=== PATIENT | male | born 1950 | race Caucasian/White ===

== ENCOUNTER → 2017-08-29 | Outpatient (CLI) | payer MEDICARE, OTHER ==
[~2017-08-29] MED LIST: COQ-10 PO; FISH OIL PO; FOLIC ACID1 MG PO; MULTIVITAMINS1 EAC7 PO; PROBIOTIC & AC1 EACH PO; PROSTATE SUPPLEMENT PO; VITAMIN B COMP1 EAC1 PO; Z.0.SIMVASTATIN20 MG PO; Z.1.RANITIDINE HCL30 PO; [UNRECOGNIZED DRUG - OTHER]
--- NOTE | 2017-08-29 18:20 | Diagnostic Imaging Report ---
History: Right shoulder pain Comparison studies: None Technique: Sagittal T1, T2 and IR, axial T2 and axial gradient echo Intravenous contrast: None Findings: Airway: Patent. Alignment: Straightening of the usual cervical lordosis is probably positional. No scoliosis. Cervicomedullary junction: No abnormalities. Patent foramen magnum. Soft tissues: No T2 hyperintense inflammatory changes. Spinal cord: Normal in size and signal from the foramen magnum through T1. Vertebrae: Normal in height and signal intensity. No fractures, infection or neoplasm. Degenerative changes: C2-C3: Minimal left foraminal stenosis due to facet and uncovertebral arthrosis. Patent spinal canal and right foramen. No disc herniation C3-C4: Mild right foraminal stenosis due to facet and uncovertebral arthrosis. Patent spinal canal and right foramen. No disc herniation C4-C5: No abnormalities. C5-C6: Mildly degenerated disc. Mild left foraminal stenosis due to facet and uncovertebral arthrosis. Patent spinal canal and right foramen. No disc herniation C6-C7: Mildly degenerated disc. Mild left foraminal stenosis due to facet and uncovertebral arthrosis. Patent spinal canal and right foramen. No disc herniation C7-T1: No abnormalities. IMPRESSION: 1. Mildly degenerated discs at C5-6 and C6-7. 2. Mild right foraminal stenosis at C3-4 and on the left at C5-6 and C6-7 due to facet and uncoarthrosis 3. Otherwise, no abnormalities. Signed by: Dr. Kenneth Thomas M.D. on 08/29/2017 6:16 PM
== END ==
LOC: MRI 10:35
PROVIDERS: ATTEND Specialist
DX: M54.12 Radiculopathy, cervical region (principal)
CPT/HCPCS: 72141

== ENCOUNTER → 2019-03-12 | Day surgery (SDC) | payer MEDICARE, OTHER ==
[2019-03-06 11:33] LABS: BASOPHILS % 0.5 % (0.0-1.0); EOSINOPHILS # (AUTO) 0.1 (0.0-0.4); EOSINOPHILS % 1.8 % (0.0-6.0); HEMATOCRIT 43.7 % (38.2-49.6); HEMOGLOBIN 14.4 g/dL (14.0-18.0); LYMPHOCYTES # (AUTO) 1.2 (1.0-3.2); LYMPHOCYTES % 16.1 % (18.0-39.1); MEAN CORPUSCULAR HEMOGLOBIN 31.4 pg (28-32); MEAN CORPUSCULAR VOLUME 95.4 fL (81-99); MONOCYTES # (AUTO) 0.7 (0.2-0.8); MONOCYTES % 8.9 % (4.4-11.3); NEUTROPHILS # (AUTO) 5.3 (2.1-6.9); NEUTROPHILS % 72.3 % (38.7-80.0); PLATELET COUNT 371 x10e3/uL (140-360); RED BLOOD COUNT 4.58 x10e6/uL (4.3-5.7); RED CELL DISTRIBUTION WIDTH 13.2 % (11.7-14.4)
[2019-03-06 11:48] LABS: BLOOD UREA NITROGEN 14 mg/dL (7-26); BUN/CREATININE RATIO 14 (6-25); CALCIUM 9.3 mg/dL (8.4-10.2); CARBON DIOXIDE 24 mmol/L (22-29); CHLORIDE 103 mmol/L (98-107); CREATININE, SERUM 1.02 mg/dL (0.72-1.25); EST GLOMERULAR FILTRATION RATE > 60 ML/MIN (60-); GLUCOSE 95 mg/dL (74-118); SODIUM 136 mmol/L (136-145)
--- NOTE | 2019-03-06 12:03 | Diagnostic Imaging Report ---
Chest, 2 views, 03/06/2019. History: Preop, right foot surgery. Comparison: None available. Findings: The cardiomediastinal silhouette and pulmonary vasculature are within normal limits. The lungs are clear without evidence of consolidation or pleural effusion. There are no acute osseous or soft tissue abnormalities. Impression: No acute cardiopulmonary abnormality. Signed by: Tato Salas on 03/06/2019 12:00 PM
[~2019-03-12] MED LIST changes: +ACETAMINOPHEN 1000 MG/100 ML 100 ML IV ONE; +ADVAIR 250-501 EACH INH; +ALBUTEROL0.63 MG/3 INH; +BUPIVACAINE HCL 0.5% INJ 30 ML VIAL INJ ONE; +CIPROFLOXACIN500 MG PO; +CLINDAMYCIN PHOS 900MG/ 50ML 50 ML IV ONE; +DEXAMETHASONE SOD PHOS 10 MG/1 ML VIAL ONE; +FAMOTIDINE 20 MG/2 ML VIAL IV ONE; +FENTANYL CITRATE/PF 100MCG/2 ML INJ ONE; +FINASTERIDE5 MG PO; +FLOMAX0.4 MG PO; +METFORMIN HCL500 MG PO; +MIDAZOLAM HCL 2 MG/2 ML VIAL ONE; +NEOSTIGMINE 1 MG/ML 10ML VIAL ONE; +ONDANSETRON HCL INJ 2MG/ML 2ML 2 MG/ML VIAL ONE; +SEVOFLURANE INHAL SOLN 250 ML PEN BTL ONE
--- NOTE | 2019-03-12 07:10 | NUR ---
SPIRITUAL CARE - Pre-Surgery Assessment: Pt in bed. Pt's at bedside. Pt reported supportive attention from family and friends. Intervention: I provided pastoral presence, hospitality, and sympathetic listening. I acquainted pt with availability of mattress renovator while hospitalized. Outcome: Pt expressed appreciation for visit. No need for follow up indicated at this time. ROSENDO Garrisonlain Spiritual Care Department O: [phone] Pager: [phone] ([phone] number calling from)
[2019-03-12 11:00] VITALS: BP 118/66
--- NOTE | 2019-03-12 18:39 | Operative Report ---
DATE OF PROCEDURE: 03/12/2019 SURGEON: Astrid Gray DPM PREOPERATIVE DIAGNOSES: 1. Plantar plate tear, right. 2. Neuroma excision, right 2nd. POSTOPERATIVE DIAGNOSIS: 1. Plantar plate tear, right. 2. Neuroma excision, right 2nd. PROCEDURES: 1. Repair of plantar plate, right 2nd intermetatarsal space. 2. Neurolysis, 2nd interspace. PATHOLOGY: None. ANESTHESIA: General anesthetic with a local block with 10 mL of 0.5 Marcaine plain. HEMOSTASIS: Pneumatic ankle tourniquet at 250 mmHg. ESTIMATED BLOOD LOSS: 10 mL. MATERIALS: A FiberWire 2-0, 3-0 Vicryl, 2-0 nylon. COMPLICATIONS: None. CONDITION: Stable. PROCEDURE IN DETAIL: Under mild sedation, the patient was brought to the operative room, placed on the operating table in a supine position. Following IV sedation, anesthesia was obtained with a general anesthetic. At this point, the right foot was scrubbed, prepped, and draped in usual aseptic manner. The tourniquet was inflated. The leg was lowered to the table. Attention was directed to the dorsal aspect of the right foot where a linear incision was made in the 2nd interspace. The incision was deepened down to the level of the adhesed neuroma. There was noted to be large amount of adhesions right at the 2nd intermetatarsal space. All that were released. The adhesed area of the neuroma was since transected. It was removed. Once all adhesions were released, the intermetatarsal ligament was transected and the plantar plate was isolated. At this moment, there was noted to be a plantar plate tear. Utilizing 2-0 Vicryl suture, the plantar plate was sutured. There was noted to be adequate alignment clinically with the use of intraoperative fluoroscopy. The area was then flushed with copious amount of normal sterile saline solution. The human allograft was then inserted to prevent further adhesions to the area and to promote healing. The area was then closed, closing the deepest layer with 3-0 Vicryl, 4-0 Vicryl, and 4-0 nylon. Clean dressing was applied consisting of Adaptic ointment, 4x4s, Kerlix, and an Vinicius bandage. The tourniquet was deflated. There was noted to be hyperemic response to all the digits. The patient tolerated the procedure and anesthesia well without complications, was transported to recovery room with vital signs stable and vascular status intact. The patient will be discharged home when he meets criteria. He was given instructions to be nonweightbearing to ice and elevate his foot to follow up with me in the office and to call the office if any questions, concerns, or any problems arise. STEPHIE Batres/LIYAH /[id number]
--- OUTSIDE RECORDS SUMMARY | 2019-03-22 10:19 | XMS REPORT ---
Author Author [facility] Address Unknown Phone Unavailable Care Team Providers Care Debt Recovery Officer Name Role Phone LAN SETH Unavailable Unavailable SERGE BYRNE Unavailable Unavailable Problems This patient has no known problems. Allergies, Adverse Reactions, Alerts This patient has no known allergies or adverse reactions. Medications This patient has no known medications. Results Test Description Test Time Test Comments Text Results Atomic Results Result Comments CHEST 2 VIEWS 2019-03-06 11:59:00 [facility] [address] [place] [address] Patient Name: AMBER ZAMORANO MR #: [id number] : 1950 Age/Sex: 68/M Req #: [id number] Adm Physician: Ordered by: LAN SETH DP Report #: [id number] Location: OR Room/Bed: Procedure: [id number] DX/CHEST 2 VIEWS Exam Date: 03/06/19 Exam Time: 1140 REPORT STATUS: Signed Chest, 2 views, 03/06/2019. History: Preop, right foot surgery. Comparison: None available. Findings: The cardiomediastinal silhouette and pulmonary vasculature are within normal limits. The lungs are clear without evidence of consolidation or pleural effusion. There are no acute osseous or soft tissue abnormalities. Impression: No acute cardiopulmonary abnormality. Signed by: Tato Salas on 03/06/2019 12:00 PM Dictated By: TATO SALAS MD 1200 Transcribed By: CHRISTIANO on 03/06/19 1200 COPY TO: LAN SETH DPM MRI SPINE CERVICAL WO [place] [address] Patient Name: AMBER ZAMORANO MR #: [id number] : 1950 Age/Sex: 66/M Req #: [id number] Adm Physician: Ordered by: SERGE BYRNE MD Report #: [id number] Location: MRI Room/Bed: Procedure: [id number] MRI/MRI SPINE CERVICAL WO Exam Date: Exam Time: REPORT STATUS: Signed History: Right shoulder pain Comparison studies: None Technique: Sagittal T1, T2 and IR, axial T2 and axial gradient echo Intravenous contrast: None Findings: Airway: Patent. Alignment: Straightening of the usual cervical lordosis is probably positional. No scoliosis. Cervicomedullary junction: No abnormalities. Patent foramen magnum. Soft tissues: No T2 hyperintense inflammatory changes. Spinal cord: Normal in size and signal from the foramen magnum through T1. Vertebrae: Normal in height and signal intensity. No fractures, infection or neoplasm. Degenerative changes: C2-C3: Minimal left foraminal stenosis due to facet and uncovertebral arthrosis. Patent spinal canal and right foramen. No disc herniation C3-C4: Mild right foraminal stenosis due to facet and uncovertebral arthrosis. Patent spinal canal and right foramen. No disc herniation C4-C5: No abnormalities. C5-C6: Mildly degenerated disc. Mild left foraminal stenosis due to facet and uncovertebral arthrosis. Patent spinal canal and right foramen. No disc herniation C6-C7: Mildly degenerated disc. Mild left foraminal stenosis due to facet and uncovertebral arthrosis. Patent spinal canal and right foramen. No disc herniation C7- T1: No abnormalities. IMPRESSION: 1. Mildly degenerated discs at C5-6 and C6-7. 2. Mild right foraminal stenosis at C3-4 and on the left at C5-6 and C6-7 due to facet and uncoarthrosis 3. Otherwise, no abnormalities. Signed by: Dr. Kenneth Thomas M.D. on 08/29/2017 6:16 PM Dictated By: KENNETH THOMAS MD, MD 15 Transcribed By: CHRISTIANO on 08/29/171815 COPY TO: SERGE BYRNE MD
== END | disposition home or self-care (01) ==
LOC: OR 06:21
PROVIDERS: ATTEND Podiatrist Foot & Ankle Surgery
DX: M21.961 Unspecified acquired deformity of right lower leg (principal); M24.574 Contracture, right foot; G57.81 Other specified mononeuropathies of right lower limb; M79.671 Pain in right foot; Z88.5 Allergy status to narcotic agent; Z88.0 Allergy status to penicillin; K21.9 Gastro-esophageal reflux disease without esophagitis; E11.9 Type 2 diabetes mellitus without complications
CPT/HCPCS: 17999; 28899; 36415 ×2; 71046; 80048; 82948; 85025; 93005; J0131; J1100; J2250; J2405; J2710; J3010; Q4150

== ENCOUNTER → 2019-12-05 | Day surgery (SDC) | payer MEDICARE, OTHER ==
[2019-12-02 13:54] LABS: BASOPHILS # (AUTO) 0.1 (0.0-0.1); EOSINOPHILS # (AUTO) 0.2 (0.0-0.4); EOSINOPHILS % 2.3 % (0.0-6.0); HEMATOCRIT 42.8 % (38.2-49.6); HEMOGLOBIN 13.9 g/dL (14.0-18.0); LYMPHOCYTES # (AUTO) 1.8 (1.0-3.2); LYMPHOCYTES % 25.1 % (18.0-39.1); MEAN CORPUSCULAR HGB CONC 32.5 g/dL (31-35); MEAN CORPUSCULAR VOLUME 95.3 fL (81-99); MONOCYTES # (AUTO) 0.6 (0.2-0.8); MONOCYTES % 8.6 % (4.4-11.3); NEUTROPHILS # (AUTO) 4.5 (2.1-6.9); NEUTROPHILS % 62.6 % (38.7-80.0); PLATELET COUNT 336 x10e3/uL (140-360); RED BLOOD COUNT 4.49 x10e6/uL (4.3-5.7); RED CELL DISTRIBUTION WIDTH 13.1 % (11.7-14.4)
[~2019-12-05] MED LIST changes: -ACETAMINOPHEN 1000 MG/100 ML 100 ML IV ONE; -BUPIVACAINE HCL 0.5% INJ 30 ML VIAL INJ ONE; -CLINDAMYCIN PHOS 900MG/ 50ML 50 ML IV ONE; -DEXAMETHASONE SOD PHOS 10 MG/1 ML VIAL ONE; -FAMOTIDINE 20 MG/2 ML VIAL IV ONE; +FAMOTIDINE20 MG PO; +HYOSCYAMINE 0.125 MG TAB ONE; +LIDOCAINE HCL 2% LOCAL INJ 5 ML SDV VIAL INJ ONE; -NEOSTIGMINE 1 MG/ML 10ML VIAL ONE; -ONDANSETRON HCL INJ 2MG/ML 2ML 2 MG/ML VIAL ONE; +PROPOFOL IV EMULSION 10 MG/ML 20 ML VIAL ONE; -SEVOFLURANE INHAL SOLN 250 ML PEN BTL ONE
--- NOTE | 2019-12-05 07:15 | NUR ---
SPIRITUAL CARE - Pre-Surgery Assessment: Pt in bed. Pt's at bedside. Pt reported supportive attention from family and friends. Intervention: Dough Sheeter provided pastoral presence, hospitality, and sympathetic listening. Acquainted pt with availability of glost tile shader while hospitalized. Outcome: Pt expressed appreciation for visit. No need for follow up indicated at this time. ROSENDO Garrisonlain Spiritual Care Department O: [phone]
[2019-12-05 09:15] VITALS: BP 130/69
--- NOTE | 2019-12-05 10:57 | Operative Report ---
DATE OF PROCEDURE: 12/05/2019 SURGEON: Chaz Pantoja MD PROCEDURES: EGD with polypectomy and biopsies, and colonoscopy with polypectomy. INDICATIONS FOR EGD: History of Justice esophagus. INDICATIONS FOR COLONOSCOPY: Surveillance colonoscopy, personal history of colon polyps, family history of colon cancer. MEDICATIONS: The patient was under MAC, please see anesthesiologist's note. PROCEDURE IN DETAIL: With the patient in the left lateral decubitus position, a flexible fiberoptic Olympus gastroscope was introduced under direct visualization into the distal esophagus. The esophagus overall appeared to be within normal limits. The previously described Justice's epithelium appears to have been totally reepithelialized. Biopsies were obtained. The scope was then advanced with ease into the stomach, there was some patchy erythema noted throughout the stomach. Hyperplastic-appearing polyps were noted in the body of the stomach and somewhat partially excised with the cold biopsy forceps. Pylorus appeared to be of normal contour and shape, it was intubated with ease and the scope was advanced all the way to the second portion of the duodenum. The scope was then withdrawn slowly and the mucosa overlying the proximal second portion and duodenal bulb grossly appeared to be within normal limits. The scope was withdrawn back into the stomach and retroflexed and was noted just below the cardia. The scope was then straightened out, it was subsequently withdrawn. The patient tolerated the procedure well. IMPRESSION: 1. Normal esophagus. 2. Previously described Justice's epithelium appears to have been totally epithelialized. Biopsies obtained. 3. Gastritis, mild. 4. Gastric polyps, body, hyperplastic appearing, some partially excised with the cold biopsy forceps. PLAN: 1. Follow up histology. 2. Continue current therapy. 3. The patient might benefit from a followup EGD in 3 to 5 years. DESCRIPTION OF PROCEDURE: The patient was then turned around after adequate lubrication of the anal canal, a flexible fiberoptic Olympus colonoscope was inserted into the rectum with ease and advanced all the way to the cecum. A minute polyp was noted in the cecum that was cold biopsied. Of note, diverticular disease was noted throughout the colon. The scope was then withdrawn slowly, mucosa overlying the ascending, transverse, descending, and sigmoid other than for diverticulosis appeared to be within normal limits. Anastomosis was noted at 20 cm from the anal verge . The patient is status post colon resection for diverticulitis. The scope was then retroflexed into the distal rectum, small internal hemorrhoids were noted, none of which was actively bleeding. The scope was then straightened out, it was subsequently withdrawn. The patient tolerated the procedure well. IMPRESSION: 1. Cecal polyp, cold biopsied. 2. Pandiverticulosis. 3. Anastomosis intact at 20 cm from the anal verge. 4. Internal hemorrhoids, none actively bleeding. PLAN: 1. Follow up histology. 2. Initiate high-fiber, low-fat diet. 3. Initiate high-fiber supplement. 4. The patient might benefit from a followup colonoscopy in 5 years. Chaz Pantoja MD [facility] [place] [facility] [place][id number] cc: Esteban Jo MD
== END | disposition home or self-care (01) ==
LOC: OR 05:55
PROVIDERS: ATTEND Internal Medicine Gastroenterology
DX: K22.70 Barrett's esophagus without dysplasia (principal); D12.0 Benign neoplasm of cecum; K31.7 Polyp of stomach and duodenum; K29.70 Gastritis, unspecified, without bleeding; K57.30 Diverticulosis of large intestine without perforation or abscess without bleeding; Z98.0 Intestinal bypass and anastomosis status; K21.0 Gastro-esophageal reflux disease with esophagitis; J45.909 Unspecified asthma, uncomplicated; E78.5 Hyperlipidemia, unspecified; E11.9 Type 2 diabetes mellitus without complications; F95.9 Tic disorder, unspecified; Z88.6 Allergy status to analgesic agent; Z88.0 Allergy status to penicillin; Z01.810 Encounter for preprocedural cardiovascular examination; Z01.812 Encounter for preprocedural laboratory examination; Z11.59 Encounter for screening for other viral diseases; Z79.84 Long term (current) use of oral hypoglycemic drugs; Z90.49 Acquired absence of other specified parts of digestive tract; Z80.0 Family history of malignant neoplasm of digestive organs
CPT/HCPCS: 36415 ×2; 43239; 45380; 82948; 85025; 88305; 88312; 93005; J2001; J2250; J2704; J3010; U0002; 45378; 45384

== ENCOUNTER → 2020-06-19 | Outpatient (CLI) | payer MEDICARE ==
[~2020-06-19] MED LIST changes: -FENTANYL CITRATE/PF 100MCG/2 ML INJ ONE; -HYOSCYAMINE 0.125 MG TAB ONE; -LIDOCAINE HCL 2% LOCAL INJ 5 ML SDV VIAL INJ ONE; -MIDAZOLAM HCL 2 MG/2 ML VIAL ONE; -PROPOFOL IV EMULSION 10 MG/ML 20 ML VIAL ONE
== END ==
LOC: MRI 10:36
PROVIDERS: ATTEND Specialist
DX: M54.42 Lumbago with sciatica, left side (principal); G89.29 Other chronic pain
CPT/HCPCS: 72148

== ENCOUNTER 2020-06-30 08:52 | Outpatient (RCR) | payer MEDICARE | END 2020-07-01 | LOC: PT 08:52 | PROVIDERS: ATTEND Specialist | DX: M47.816 Spondylosis without myelopathy or radiculopathy, lumbar region (principal) ==

== ENCOUNTER 2020-07-06 14:55 | Outpatient (RCR) | payer MEDICARE ==
[~2020-07-06 14:55] MED LIST changes: -[UNRECOGNIZED DRUG - OTHER]; +[UNRECOGNIZED DRUG - OTHER] PO
[2020-07-17] MEDS ORDERED: ASPIRIN325 MG PO (10:18)
[2020-07-23] MEDS ORDERED: PERCOCET 5-3251 EACH PO (08:50)
== END 2020-07-31 ==
LOC: PT 14:55
PROVIDERS: ATTEND Specialist
DX: M47.816 Spondylosis without myelopathy or radiculopathy, lumbar region (principal)

== ENCOUNTER 2020-07-23 05:38 | Observation (INO) | payer MEDICARE ==
[2020-07-20 08:20] LABS: BASOPHILS # (AUTO) 0.1 (0.0-0.1); BASOPHILS % 0.9 % (0.0-1.0); EOSINOPHILS # (AUTO) 0.2 (0.0-0.4); EOSINOPHILS % 2.8 % (0.0-6.0); HEMATOCRIT 43.2 % (38.2-49.6); HEMOGLOBIN 14.3 g/dL (14.0-18.0); LYMPHOCYTES # (AUTO) 1.4 (1.0-3.2); LYMPHOCYTES % 23.8 % (18.0-39.1); MEAN CORPUSCULAR HEMOGLOBIN 31.4 pg (28-32); MEAN CORPUSCULAR HGB CONC 33.1 g/dL (31-35); MEAN CORPUSCULAR VOLUME 94.7 fL (81-99); MONOCYTES # (AUTO) 0.6 (0.2-0.8); MONOCYTES % 9.6 % (4.4-11.3); NEUTROPHILS # (AUTO) 3.6 (2.1-6.9); NEUTROPHILS % 62.6 % (38.7-80.0); PLATELET COUNT 360 x10e3/uL (140-360); RED BLOOD COUNT 4.56 x10e6/uL (4.3-5.7); RED CELL DISTRIBUTION WIDTH 13.2 % (11.7-14.4)
[2020-07-20 08:34] LABS: INR 0.94; PROTHROMBIN TIME 13.2 seconds (11.9-14.5)
[2020-07-20 08:35] LABS: PARTIAL THROMBOPLASTIN TIME 34.3 seconds (23.8-35.5)
[2020-07-20 08:41] LABS: ANION GAP 15.2 mmol/L (8-16); BLOOD UREA NITROGEN 16 mg/dL (7-26); BUN/CREATININE RATIO 14 (6-25); CALCIUM 8.9 mg/dL (8.4-10.2); CARBON DIOXIDE 26 mmol/L (22-29); CHLORIDE 106 mmol/L (98-107); CREATININE, SERUM 1.12 mg/dL (0.72-1.25); EST GLOMERULAR FILTRATION RATE > 60 ML/MIN (60-); GLUCOSE 123 mg/dL (74-118); POTASSIUM 4.2 mmol/L (3.5-5.1); SODIUM 143 mmol/L (136-145)
[~2020-07-23] VITALS: Ht 165.1 cm; Wt 69.9 kg
[~2020-07-23 05:38] MED LIST changes: +ASPIRIN325 MG PO
[2020-07-23] MEDS ORDERED: BUPIVACAINE 0.5%/EPI 30 ML SDV INJ ONE (06:43)
[2020-07-23] MEDS ORDERED: THROMBIN FOR SOLN 5,000 UNIT VIAL ONE (06:43)
[2020-07-23] MEDS ORDERED: VANCOMYCIN HCL 1 GM VIAL ONE (06:43)
[2020-07-23] MEDS ORDERED: VANCOMYCIN 1GM/NS 250 ML 250 ML ONE (06:45)
[2020-07-23] MEDS ORDERED: SCOPOLAMINE 1.5 MG PATCH ONE ×2 (07:02→07:41)
[2020-07-23] MEDS ORDERED: METOCLOPRAMIDE HCL 10 MG/2ML VIAL ONE (07:02)
[2020-07-23] MEDS ORDERED: FAMOTIDINE 20 MG/2 ML VIAL IV ONE (07:02)
[2020-07-23] MEDS ORDERED: IBUPROFEN 800MG/ 200ML 200 ML IV ONE (07:30)
[2020-07-23] MEDS ORDERED: ACETAMINOPHEN 1000 MG/100 ML 100 ML IV ONE (07:30)
[2020-07-23] MEDS ORDERED: LIDOCAINE HCL (LTA) 4 ML SOLN ONE (07:30)
[2020-07-23] MEDS ORDERED: PERCOCET 5-3251 EACH PO (08:50)
[2020-07-23] MEDS ORDERED: ALBUTEROL SULF 0.083% NEB SOLN 3 ML NEB INH PRN (09:00)
[2020-07-23] MEDS ORDERED: LANSOPRAZOLE 30 MG PO SCH (09:00)
[2020-07-23] MEDS ORDERED: CEPACOL SORE THROAT LOZENGES PO PRN (09:00)
[2020-07-23] MEDS ORDERED: MAGNESIUM/ALUMINUM/SIMETHICONE 30 ML UDC PO PRN (09:00)
[2020-07-23] MEDS ORDERED: PROMETHAZINE HCL (IM) 25 MG/ML VIAL IM PRN (09:00)
[2020-07-23] MEDS ORDERED: ACETAMINOPHEN 325 MG TAB PO PRN (09:00)
[2020-07-23] MEDS ORDERED: ONDANSETRON HCL INJ 2MG/ML 2ML 2 MG/ML VIAL IV PRN (09:00)
[2020-07-23] MEDS ORDERED: HYDROMORPHONE 2MG/ML 2 MG/ML ML IV PRN (09:00)
[2020-07-23] MEDS ORDERED: FENTANYL CITRATE/PF 100MCG/2 ML INJ ONE ×2 (09:17→12:57)
[2020-07-23] MEDS ORDERED: HYDROMORPHONE 1MG/1ML INJ IV PRN (10:30)
[2020-07-23 11:00] VITALS: BP 125/78
[2020-07-23] MEDS ORDERED: NEOSTIGMINE 1 MG/ML 10ML VIAL ONE (12:00)
[2020-07-23] MEDS ORDERED: DEXAMETHASONE SOD PHOS INJ 4 MG/ML VIAL ONE (12:00)
[2020-07-23] MEDS ORDERED: GLYCOPYRROLATE INJ 0.2 MG/ML VIAL ONE (12:00)
[2020-07-23] MEDS ORDERED: PROPOFOL IV EMULSION 10 MG/ML 20 ML VIAL ONE (12:00)
[2020-07-23] MEDS ORDERED: SEVOFLURANE INHAL SOLN 250 ML PEN BTL ONE (12:00)
[2020-07-23] MEDS ORDERED: LIDOCAINE HCL 2% LOCAL INJ 5 ML SDV VIAL INJ ONE (12:00)
[2020-07-23] MEDS ORDERED: LIDOCAINE HCL 2% JELLY 5 ML TUBE ONE (12:00)
[2020-07-23] MEDS ORDERED: ONDANSETRON HCL INJ 2MG/ML 2ML 2 MG/ML VIAL ONE (12:00)
[2020-07-23] MEDS ORDERED: POVIDONE IODINE 0.05% 0.05 % ML PO ONE (12:00)
[2020-07-23] MEDS ORDERED: ROCURONIUM BROMIDE 10 MG/ML 5ML VIAL IV ONE (12:00)
[2020-07-23 12:46] VITALS: BP 103/69
[2020-07-23] MEDS ORDERED: MIDAZOLAM HCL 2 MG/2 ML VIAL ONE (12:57)
[2020-07-23] MEDS: LACTATED RINGER'S 1,000 ML IV SCH ×2 (13:18→17:06)
[2020-07-23 16:52] VITALS: BP 111/76
[2020-07-23 17:00] VITALS: BP 111/76
[2020-07-23] MEDS: VANCOMYCIN 1GM/NS 250 ML 250 ML IV SCH (17:06)
[2020-07-23] MEDS: PANTOPRAZOLE SOD 40 MG TABEC PO SCH (17:06)
[2020-07-23 20:00] VITALS: BP_SYST 111; BP_SYST 123; BP_DIAS 69; BP_DIAS 76
[2020-07-23] MEDS: OXYCODONE/ACETAMINOPHEN 5-325 1 EACH TABLET PO PRN (20:51)
[2020-07-23] MEDS ORDERED: FAMOTIDINE 20 MG TAB PO SCH (21:00)
[2020-07-23] MEDS ORDERED: SIMVASTATIN 40 MG TAB PO SCH (21:00)
[2020-07-23] MEDS ORDERED: ZOLPIDEM TARTRATE 5 MG TAB PO PRN (21:00)
[2020-07-24] VITALS: BP 99/61
[2020-07-24 04:00] VITALS: BP 103/67
[2020-07-24] MEDS: LACTATED RINGER'S 1,000 ML IV SCH (04:41)
[2020-07-24] MEDS: VANCOMYCIN 1GM/NS 250 ML 250 ML IV SCH (06:28)
[2020-07-24] MEDS: PANTOPRAZOLE SOD 40 MG TABEC PO SCH (07:30)
[2020-07-24] MEDS: OXYCODONE/ACETAMINOPHEN 5-325 1 EACH TABLET PO PRN (08:09)
[2020-07-24 08:13] VITALS: BP 125/79
[2020-07-24 08:47] VITALS: BP 125/79
== END 2020-07-24 09:42 | disposition home or self-care (01) ==
LOC: OR 05:38 → PACU V 08:49 → MED/SURG 10:00
PROVIDERS: ADMIT Neurological Surgery; ATTEND Neurological Surgery
DX: M48.062 Spinal stenosis, lumbar region with neurogenic claudication (principal); M19.90 Unspecified osteoarthritis, unspecified site; J45.909 Unspecified asthma, uncomplicated; E78.5 Hyperlipidemia, unspecified; Z20.822 Contact with and (suspected) exposure to COVID-19
CPT/HCPCS: 36415; 63047; 63048; 71046; 72020; 80048; 85025; 85610; 85730; 86850; 86900; 88304; 88311; 93005; 99251; G0378 ×2; J0131; J1100; J2001 ×2; J2250; J2405; J2704; J2710; J2765; J3010; J3370 ×3; J7121 ×2; S0164 ×2; U0002

== ENCOUNTER → 2020-11-16 | Outpatient (CLI) | payer MEDICARE ==
[~2020-11-16] MED LIST changes: +PERCOCET 5-3251 EACH PO
== END ==
LOC: MRI 07:39
PROVIDERS: ATTEND Family Medicine
DX: R42 Dizziness and giddiness (principal)
CPT/HCPCS: 70544; 70547; 70551

== ENCOUNTER → 2020-12-01 | Outpatient (CLI) | payer MEDICARE ==
[~2020-12-01] MED LIST changes: +GADOBENATE DIMEGLUMINE 1 ML IV ONE
== END ==
LOC: MRI 13:37
PROVIDERS: ATTEND Family Medicine
DX: M54.2 Cervicalgia (principal)
CPT/HCPCS: 72156

== ENCOUNTER 2020-12-30 12:59 | Outpatient (RCR) | payer MEDICARE ==
[~2020-12-30 12:59] MED LIST changes: -GADOBENATE DIMEGLUMINE 1 ML IV ONE
== END 2020-12-31 ==
LOC: PT 12:59
PROVIDERS: ATTEND Physical Medicine & Rehabilitation Pain Medicine
DX: M54.16 Radiculopathy, lumbar region (principal)
CPT/HCPCS: 97139

== ENCOUNTER → 2023-04-20 | Outpatient (REF) | payer MEDICARE | LOC: MRI 08:42 | PROVIDERS: ATTEND Specialist | DX: M54.12 Radiculopathy, cervical region (principal) | CPT/HCPCS: 72141 ==

== ENCOUNTER → 2023-07-18 | Day surgery (SDC) | payer MEDICARE ==
[~2023-07-18] MED LIST changes: +ACETAMINOPHEN 1000 MG/100 ML IV ONE; +ALLEGRA ALLERGY60 MG PO; +CELEBREX200 MG PO; +COQ-10100 MG; +CRESTOR10 MG PO; +DEXAMETHASONE SOD PHOS 10 MG/1 ML VIAL ONE; +DEXAMETHASONE SOD PHOS INJ 4 MG/ML SDV ONE; +EPHEDRINE SULFATE INJ 50 MG/ML VIAL ONE; +EPINEPHRINE 1 MG/ML 30ML VIAL ONE; +EPINEPHRINE HCL 1:1000 1ML 1 MG/ML AMP ONE; +FAMOTIDINE 20 MG/2 ML VIAL IV ONE; +FENTANYL CITRATE/PF 100MCG/2 ML INJ ONE; +LACTATED RINGER'S 1,000 ML ONE; +LIDOCAINE HCL 2% LOCAL INJ 5 ML SDV VIAL INJ ONE; +METOCLOPRAMIDE HCL 10 MG/2ML VIAL ONE; +MIDAZOLAM HCL 2 MG/2 ML VIAL ONE; +MULTI-VITAMIN1 EACH PO; +ONDANSETRON HCL INJ 2MG/ML 2ML 2 MG/ML VIAL ONE; +PROBIOTIC; +PROPOFOL IV EMULSION 10 MG/ML 20 ML VIAL ONE; +ROCURONIUM BROMIDE 10 MG/ML 5ML VIAL IV ONE; +ROPIVACAINE 0.5% 5 MG/ML 30 ML SDV ONE; +SAW PALMETTO450 MG; +SEVOFLURANE INHAL SOLN 250 ML PEN BTL ONE; +SUCRALFATE1 GM PO; +SUGAMMADEX SODIUM 200 MG/2 ML VIAL IV ONE; +VASOPRESSIN INJ 20 UNIT/ML VIAL ONE
[2023-07-18 11:16] VITALS: TEMP 97
[2023-07-18] MEDS: ONDANSETRON HCL INJ 2MG/ML 2ML 2 MG/ML VIAL ONE (12:00)
[2023-07-18 12:23] VITALS: BP 109/64; PULSE 70; RESP 18; O2SAT 94
[2023-07-18] MEDS: METOCLOPRAMIDE HCL 10 MG/2ML VIAL ONE (12:23)
== END | disposition home or self-care (01) ==
LOC: OR 07:03
PROVIDERS: ATTEND Specialist
DX: M75.101 Unspecified rotator cuff tear or rupture of right shoulder, not specified as traumatic (principal); M75.21 Bicipital tendinitis, right shoulder; M75.51 Bursitis of right shoulder; E78.5 Hyperlipidemia, unspecified; K21.9 Gastro-esophageal reflux disease without esophagitis; M54.9 Dorsalgia, unspecified; J45.909 Unspecified asthma, uncomplicated; M06.9 Rheumatoid arthritis, unspecified; Z88.6 Allergy status to analgesic agent; Z88.0 Allergy status to penicillin; Z01.818 Encounter for other preprocedural examination; Z79.84 Long term (current) use of oral hypoglycemic drugs; Z79.899 Other long term (current) drug therapy
CPT/HCPCS: 29827; 71046; C1713; J0131; J0171; J0690; J1100 ×2; J2001; J2250; J2405; J2704; J2765; J2795; J3010; J7121

== ENCOUNTER → 2024-07-30 | Day surgery (SDC) | payer MEDICARE ==
[2024-07-24 16:07] LABS: BASOPHILS # (AUTO) 0.1 (0.0-0.1); BASOPHILS % 0.9 % (0.0-1.0); EOSINOPHILS # (AUTO) 0.3 (0.0-0.4); EOSINOPHILS % 4.7 % (0.0-6.0); HEMATOCRIT 44.2 % (38.2-49.6); HEMOGLOBIN 14.7 g/dL (14.0-18.0); LYMPHOCYTES # (AUTO) 1.6 (1.0-3.2); LYMPHOCYTES % 24.6 % (18.0-39.1); MEAN CORPUSCULAR HEMOGLOBIN 31.4 pg (28-32); MEAN CORPUSCULAR HGB CONC 33.3 g/dL (31-35); MEAN CORPUSCULAR VOLUME 94.4 fL (81-99); MONOCYTES # (AUTO) 0.8 (0.2-0.8); MONOCYTES % 12.3 % (4.4-11.3); NEUTROPHILS # (AUTO) 3.8 (2.1-6.9); NEUTROPHILS % 57.3 % (38.7-80.0); PLATELET COUNT 351 x10e3/uL (140-360); RED BLOOD COUNT 4.68 x10e6/uL (4.3-5.7); WHITE BLOOD COUNT 6.66 x10e3/uL (4.8-10.8)
[~2024-07-30] MED LIST changes: +ACETAMINOPHEN 1000 MG/100 ML 100 ML IV ONE; -ACETAMINOPHEN 1000 MG/100 ML IV ONE; +BUPIVACAINE LIPOSOME/PF 266 MG/20 ML IJ ONE; +CALCIUM CHLORIDE 10% SYRINGE 10 ML IV ONE; -DEXAMETHASONE SOD PHOS 10 MG/1 ML VIAL ONE; -EPINEPHRINE 1 MG/ML 30ML VIAL ONE; -EPINEPHRINE HCL 1:1000 1ML 1 MG/ML AMP ONE; -FAMOTIDINE 20 MG/2 ML VIAL IV ONE; -METOCLOPRAMIDE HCL 10 MG/2ML VIAL ONE; +MINOCYCLINE HCL50 MG PO; -ROCURONIUM BROMIDE 10 MG/ML 5ML VIAL IV ONE; -ROPIVACAINE 0.5% 5 MG/ML 30 ML SDV ONE; -SEVOFLURANE INHAL SOLN 250 ML PEN BTL ONE; +SODIUM CHLORIDE 0.9% 100 ML ONE; -SUGAMMADEX SODIUM 200 MG/2 ML VIAL IV ONE; +ULTRAM 50MG50 MG PO; -VASOPRESSIN INJ 20 UNIT/ML VIAL ONE; +VENTOLIN HFA18 GM INH
[2024-07-30] MEDS: LACTATED RINGER'S 1,000 ML ONE (06:36)
[2024-07-30] MEDS: ONDANSETRON HCL INJ 2MG/ML 2ML 2 MG/ML VIAL ONE (11:01)
[2024-07-30 11:50] VITALS: BP 144/82; PULSE 81; RESP 17; O2SAT 97
== END | disposition home or self-care (01) ==
LOC: OR 05:57
PROVIDERS: ATTEND Plastic Surgery
DX: M18.12 Unilateral primary osteoarthritis of first carpometacarpal joint, left hand (principal); E78.5 Hyperlipidemia, unspecified; J45.909 Unspecified asthma, uncomplicated; K21.9 Gastro-esophageal reflux disease without esophagitis; G89.29 Other chronic pain; N40.0 Benign prostatic hyperplasia without lower urinary tract symptoms; N20.0 Calculus of kidney; Z88.0 Allergy status to penicillin; Z88.6 Allergy status to analgesic agent; Z01.810 Encounter for preprocedural cardiovascular examination; Z01.812 Encounter for preprocedural laboratory examination; Z01.818 Encounter for other preprocedural examination; Z79.899 Other long term (current) drug therapy
CPT/HCPCS: 25448; 36415; 71046; 85025; 93005; C1713 ×2; J0131; J0666; J0690; J1100; J2003; J2250; J2405; J2704; J3010; J7050; J7121

== ENCOUNTER → 2024-09-30 | Outpatient (RCR) | payer MEDICARE ==
[~2024-09-30] MED LIST changes: -ACETAMINOPHEN 1000 MG/100 ML 100 ML IV ONE; -BUPIVACAINE LIPOSOME/PF 266 MG/20 ML IJ ONE; -CALCIUM CHLORIDE 10% SYRINGE 10 ML IV ONE; -DEXAMETHASONE SOD PHOS INJ 4 MG/ML SDV ONE; -EPHEDRINE SULFATE INJ 50 MG/ML VIAL ONE; -FENTANYL CITRATE/PF 100MCG/2 ML INJ ONE; -LACTATED RINGER'S 1,000 ML ONE; -LIDOCAINE HCL 2% LOCAL INJ 5 ML SDV VIAL INJ ONE; -MIDAZOLAM HCL 2 MG/2 ML VIAL ONE; -ONDANSETRON HCL INJ 2MG/ML 2ML 2 MG/ML VIAL ONE; -PROPOFOL IV EMULSION 10 MG/ML 20 ML VIAL ONE; -SODIUM CHLORIDE 0.9% 100 ML ONE
== END ==
LOC: OT 09-04 09:53
PROVIDERS: ATTEND Plastic Surgery
DX: M19.042 Primary osteoarthritis, left hand (principal)

== ENCOUNTER 2024-10-23 10:00 | Outpatient (RCR) | payer MEDICARE | END 2024-10-31 | LOC: OT 10:00 | PROVIDERS: ATTEND Plastic Surgery | DX: M19.042 Primary osteoarthritis, left hand (principal) ==